=== PATIENT | female | born 1965 | race Caucasian/White ===

== ENCOUNTER 2017-01-02 08:11 | Day surgery (SDC) | payer BC ==
[~2017-01-02] VITALS: Ht 154.9 cm; Wt 59.4 kg
[~2017-01-02 08:11] MED LIST: ADVIL200 MG PO; TYLENOL EXTRA500 MG PO
[2017-01-02 08:39] VITALS: BP 142/73
[2017-01-02 12:05] VITALS: BP 115/64
[2017-01-02 12:40] VITALS: BP 129/63
== END 2017-01-02 12:56 | disposition home or self-care (01) ==
LOC: SDC 08:11
PROC: 0UDB8ZX Extraction of Endometrium, Via Natural or Artificial Opening Endoscopic, Diagnostic (ICD-10-PCS; principal; 2017-01-02)
DX: N92.0 Excessive and frequent menstruation with regular cycle (principal); N84.0 Polyp of corpus uteri; N85.4 Malposition of uterus; N94.6 Dysmenorrhea, unspecified; D50.0 Iron deficiency anemia secondary to blood loss (chronic); Z82.49 Family history of ischemic heart disease and other diseases of the circulatory system; Z83.3 Family history of diabetes mellitus; Z80.3 Family history of malignant neoplasm of breast; Z88.0 Allergy status to penicillin
CPT/HCPCS: 88305; J0131; J1885; J2250; J3010

== ENCOUNTER → 2017-05-06 | Outpatient (CLI) | payer BC ==
[~2017-05-06] MED LIST changes: +CLARITIN,ALAVAR10 MG PO
== END | disposition home or self-care (01) ==
LOC: CDC 13:55
DX: Z01.810 Encounter for preprocedural cardiovascular examination (principal)
CPT/HCPCS: 93000

== ENCOUNTER 2017-05-12 05:31 | Day surgery (SDC) | payer BC ==
[~2017-05-12] VITALS: Ht 154.9 cm; Wt 65.9 kg
[2017-05-12 06:03] VITALS: BP 166/76
[2017-05-12 14:45] VITALS: BP 128/68
[2017-05-12 15:36] VITALS: BP 118/67
[2017-05-12 20:30] VITALS: BP 104/58
[2017-05-12 23:41] VITALS: BP 85/51
[2017-05-13 03:19] VITALS: BP 87/52
[2017-05-13 06:47] LABS: EOSINOPHIL (%) 0.3 % (0-5); HEMATOCRIT 25.4 % (36.0-46.0); IMMATURE GRANULOCYTE (%) 0.5 % (0.0-0.7); INSTRUMENT ABS NEUTROPHIL CT 5.2 K/uL; MCH 25.6 PG (29.0-34.0); MCHC 31.5 G/DL (30.0-36.0); MCV 81.4 FL (83-99); MEAN PLAT.VOLUME 10.6 uM^3 (9.5-12.4); MONOCYTE COUNT 0.7 K/uL (0-0.8); NEUTROPHIL (%) 64.9 % (45-76); NEUTROPHIL COUNT 5.2 K/uL (1.8-6.4); RBC DIS.WIDTH-CV 16.5 % (11.8-14.6); RBC DIS.WIDTH-SD 48.7 % (39-53); WHITE BLOOD COUNT 7.9 K/uL (4.1-10.2)
[2017-05-13 07:14] LABS: ANION GAP 6 MEQ/L (2-14); CHLORIDE 109 MEQ/L (99-109); GFR ESTIMATE (CALCULATED) > 59 mL/min/; GLUCOSE 88 mg/dL (70-99); POTASSIUM 4.1 MEQ/L (3.7-5.4); SAMPLE HEMOLYSIS CHECK 0; SAMPLE ICTERIC CHECK 0; SAMPLE LIPEMIA CHECK 0; SODIUM 140 MEQ/L (136-147); UREA NITROGEN (BUN) 9 mg/dL (9-23)
[2017-05-13 08:19] VITALS: BP 92/57
[2017-05-13 10:54] VITALS: BP 121/73
[2017-05-13 13:54] LABS: RED BLOOD COUNT 3.12 M/uL (3.80-5.20)
[2017-05-13 13:55] LABS: PLATELET COUNT 200 K/uL (156-360)
== END 2017-05-13 11:06 | disposition home or self-care (01) ==
LOC: SDC 05:31 → 2SOUTH 10:00 → 2EAST 10:00 → ENRESERV 10:12 → SDC 10:44 → ENRESERV 12:23 → 2EAST 13:19 → SDC 16:07 → 2EAST 05-13 11:06
PROVIDERS: Obstetrics & Gynecology Gynecology
DX: N92.0 Excessive and frequent menstruation with regular cycle (principal); N80.0 Endometriosis of uterus; D25.9 Leiomyoma of uterus, unspecified; N94.6 Dysmenorrhea, unspecified; D64.9 Anemia, unspecified; N80.3 Endometriosis of pelvic peritoneum; K66.0 Peritoneal adhesions (postprocedural) (postinfection); Z88.0 Allergy status to penicillin
CPT/HCPCS: 80048; 85025; 87086; 88302; 88307; G0378; J0330; J0690; J1100; J1644; J1885; J2001; J2405; J2710; J2795; J3010; J3475; J7120; S0020